=== PATIENT | female | born 1995 | race Two or more races ===

== ENCOUNTER 2018-05-26 14:32 | Outpatient (CLI) | payer BC ==
[~2018-05-26] VITALS: Ht 165.1 cm; Wt 83.2 kg
[2018-05-26 15:04] VITALS: Ht 165.1 cm; Wt 83.2 kg
[2018-05-26 15:05] VITALS: BP 124/66; PULSE 106; RESP 18
--- NOTE | 2018-05-26 21:42 | PN ---
Triage Information Date/Time 05/26/18 Reason for visit: mucous plug out Weeks of Gestation [id number] /Para primigravida Diabetes: none Hypertention: none Objective Vital Signs Date Temp Pulse Resp B/P (MAP) Pulse Ox O2 O2 Flow FiO2 Time Delivery Rate 05/26/18 98.7 106 18 124/66 Room Air 15:05 (85) Heart Rate: 130's Contractions: < 5 Minutes Apart Exam VE closed /long/-2 Results/Medications Results 24 hrs Laboratory Tests Test 05/26/18 14:40 05/26/18 18:00 Urine Color YELLOW YELLOW Urine Clarity SLIGHTLY CLOUDY A CLEAR Urine pH 6.0 7.0 Urine Specific [place] 1.027 1.018 Urine Ketones NEGATIVE 1+ H Urine Nitrite NEGATIVE NEGATIVE Urine Bilirubin NEGATIVE NEGATIVE Urine Urobilinogen NEGATIVE NEGATIVE Urine Leukocyte Esterase 2+ H 2+ H Urine Microscopic RBC 2 1 Urine Microscopic WBC 22 H 2 Urine Squamous Epithelial Cells MODERATE FEW Urine Bacteria FEW A Urine Mucus FEW A FEW A Urine Hemoglobin 1+ H NEGATIVE Urine Glucose NEGATIVE NEGATIVE Urine Total Protein 1+ H NEGATIVE Imaging Results BPP 01/12 PIPER 14.5 Disposition: Discharge Assessment/Plan A, [id number] in latent phase P discharge home with routine labor instructions PAT FALCON MD May 26, 2018 20:51
--- NOTE | 2018-05-27 01:49 | TRIAGE ---
OB Triage Datetime Report Generated by CPN: 05/27/2018 01:49 Datetime: 05/26/2018 20:55 Stage of : OB Triage Labor Evaluation Frequency: 2-7 Monitor Mode: External Duration (sec)2399: 70-120 Quality: Mild Pattern: Normal: <= 5 Contractions in 10 Minutes Resting Tone [place]: Relaxed Heart Rate FHR Baseline Rate: 135 Monitor Mode: External US Variability: Moderate 6-25 bpm Accelerations: 15X15 Decelerations: None Category: Category I Pain Presence: None/Denies Datetime: 05/26/2018 20:30 Monitor Mode: External US Datetime: 05/26/2018 20:00 Stage of : OB Triage Labor Evaluation Frequency: 4-7 Monitor Mode: External Duration (sec)2399: 70-120 Quality: Mild Pattern: Normal: <= 5 Contractions in 10 Minutes Resting Tone [place]: Relaxed Heart Rate FHR Baseline Rate: 130 Monitor Mode: External US Variability: Moderate 6-25 bpm Accelerations: 15X15 Decelerations: None Category: Category I Pain Presence: None/Denies Datetime: 05/26/2018 19:00 Stage of : OB Triage Labor Evaluation Frequency: 2-4 Monitor Mode: External Duration (sec)2399: 70-90 Quality: Mild Pattern: Normal: <= 5 Contractions in 10 Minutes Resting Tone [place]: Relaxed Interventions: Side to Side Heart Rate FHR Baseline Rate: 130 Monitor Mode: External US Variability: Minimal - Undetectable to <=5 bpm Accelerations: 15X15 Decelerations: None Category: Category II Pain Assessment Pain Scale: 0 Pain Presence: None/Denies Pain Type: N/A Datetime: 05/26/2018 18:00 Stage of : OB Triage Labor Evaluation Frequency: 2-4 Monitor Mode: External Duration (sec)2399: 90-120 Quality: Mild Pattern: Normal: <= 5 Contractions in 10 Minutes Resting Tone [place]: Relaxed Interventions: Side to Side Heart Rate FHR Baseline Rate: 130 Monitor Mode: External US Variability: Minimal - Undetectable to <=5 bpm Accelerations: 15X15 Decelerations: None Category: Category II Pain Assessment Pain Scale: 0 Pain Presence: None/Denies Pain Type: N/A Datetime: 05/26/2018 17:00 Labor Evaluation Frequency: 2-6 Monitor Mode: External Duration (sec)2399: 60-100 Quality: Mild Pattern: Normal: <= 5 Contractions in 10 Minutes Resting Tone [place]: Relaxed Heart Rate FHR Baseline Rate: 130 Monitor Mode: External US Variability: Moderate 6-25 bpm Accelerations: 15X15 Decelerations: Variable Category: Category II Comments: late decel noted x1 Pain Assessment Pain Scale: 0 Pain Presence: None/Denies Pain Type: N/A Datetime: 05/26/2018 16:00 Labor Evaluation Frequency: 2-6 Monitor Mode: External Duration (sec)2399: 60-120 Quality: Mild Pattern: Normal: <= 5 Contractions in 10 Minutes Resting Tone [place]: Relaxed Heart Rate FHR Baseline Rate: 130 Monitor Mode: External US Variability: Minimal - Undetectable to <=5 bpm Accelerations: 10X10 Decelerations: None Category: Category II Comments: periods of loss of contact Pain Assessment Pain Scale: 0 Pain Presence: None/Denies Pain Type: N/A Datetime: 05/26/2018 15:53 Vaginal Exam Dilatation (cms): 0.0 Effacement (%): 40 Station: -2 Exam By: BJacobo Vaginal Bleeding: None Cervix, Consistency: Moderate Cervix, Position: Posterior Datetime: 05/26/2018 15:27 Stage of : OB Triage Datetime: 05/26/2018 15:11 Stage of : OB Triage Temperature Route: Oral Labor Evaluation Frequency: 2-4 Monitor Mode: External Duration (sec)2399: 100 Quality: Mild Pattern: Normal: <= 5 Contractions in 10 Minutes Resting Tone [place]: Relaxed Interventions: Side to Side Heart Rate FHR Baseline Rate: 140 Monitor Mode: External US Variability: Minimal - Undetectable to <=5 bpm Accelerations: 15X15 Decelerations: Variable Category: Category II Pain Assessment Pain Scale: 0 Pain Presence: None/Denies Pain Type: N/A Datetime: 05/26/2018 15:09 Assessment Type: Triage EGA: 38.6 Maternal Assessment Level of Consciousness: Fully Conscious Headache: Denies Blurred Vision: No Respiratory Effort: Unlabored; Regular Rhythm; Equal Expansion Breath Sounds, Left: Clear and Equal Breath Sounds, Right: Clear and Equal Nausea/Vomiting: Hx of Nausea/Vomiting RUQ Epigastric Pain: Denies Lower Extremities Edema: None Degree: None Upper Extremities Edema: None Degree: None Facial Edema: None Fall Risk Assessment History of Falling: (0) No Secondary Diagnosis: (0) No Ambulatory Aid: (0) Bedrest/Nurse Assist IV Therapy: (0) No Gait: (0) Normal/Bedrest/Immobile Mental Status: (0) Oriented to Own Ability Fall Score: 0 Fall Risk Score Definition: No Risk: No action required Datetime: 05/26/2018 15:07 Time of Arrival: 05/26/2018 14:30 Arrived By: Ambulatory Arrived From: Home Chief Complaint: thinks mucous plug came out Movement: Present Contractions: Denies/Absent Rupture of Membranes: Denies Vaginal Bleeding: Scant Vaginal Discharge: Present Recent Sexual Intercouse: Denies Abdominal Trauma: Not Applicable Patient Complaints: None Time Provider Notified: 05/26/2018 15:27 Provider Notified: Chela Initial Plan: EFCheo, VS
== END 2018-05-26 21:05 | disposition home or self-care (01) ==
LOC: L-D 14:32 → OBT 14:32
PROVIDERS: ATTEND Obstetrics & Gynecology
DX: O60.03 Preterm labor without delivery, third trimester (principal); Z3A.38 38 weeks gestation of pregnancy
CPT/HCPCS: 76818; 81001; Z7500; G0463